=== PATIENT | male | born 2000 ===

== ENCOUNTER 2022-03-22 17:03 | Emergency (ER) | payer SELFPAY | END 2022-03-22 18:45 | disposition home or self-care (01) | LOC: ER1 17:03 | DX: S01.01XA Laceration without foreign body of scalp, initial encounter (principal); W22.8XXA Striking against or struck by other objects, initial encounter; Y92.009 Unspecified place in unspecified non-institutional (private) residence as the place of occurrence of the external cause | CPT/HCPCS: 12002; 90471; 90714; 99282 ==